=== PATIENT | male | born 1960 | race Caucasian/White ===

== ENCOUNTER → 2016-06-04 | Outpatient (CLI) | payer OTHER ==
[~2016-06-04] MED LIST: CYCL1TAB29 PO; GABA100C4 PO; NAPR250T PO; [UNRECOGNIZED DRUG - CODE] PO
[2016-06-04 08:44] LABS: BASOPHIL # 0.1 TH/MM3 (0-0.2); BASOPHIL % 0.7 % (0.0-2.0); EOSINOPHIL # 0.1 TH/MM3 (0-0.4); EOSINOPHIL % 1.6 % (0.0-4.0); HEMATOCRIT 43.7 % (39.0-51.0); HEMO FLAGS DIFF FINAL; LYMPH % 17.1 % (9.0-44.0); LYMPHOCYTE # 1.4 TH/MM3 (1.0-4.8); MEAN CELL VOLUME 90.7 FL (80.0-100.0); MEAN CORPUSCULAR HEMOGLOBIN 31.3 PG (27.0-34.0); MEAN CORPUSCULAR HGB CONC 34.5 % (32.0-36.0); MONO % 7.3 % (0.0-8.0); NEUT % 73.3 % (16.0-70.0); PLATELET COUNT 344 TH/MM3 (150-450); RED BLOOD COUNT 4.82 MIL/MM3 (4.50-5.90); RED CELL DISTRIBUTION WIDTH 14.1 % (11.6-17.2); WHITE BLOOD COUNT 8.1 TH/MM3 (4.0-11.0)
[2016-06-04 09:26] LABS: ALKALINE PHOSPHATASE 75 U/L (45-117); ALT (GPT) 42 U/L (12-78); ANION GAP 7 MEQ/L (5-15); AST (GOT) 27 U/L (15-37); BICARBONATE 27.2 MEQ/L (21.0-32.0); BLOOD UREA NITROGEN 17 MG/DL (7-18); CHLORIDE 108 MEQ/L (98-107); GLOMERULAR FILTRATION RATE 101 ML/MIN (>89); GLUCOSE,FASTING 94 MG/DL (74-99); HDL CHOLESTEROL 65.6 MG/DL (40.0-60.0); LDL CHOLESTEROL 116 MG/DL (0-99); POTASSIUM 4.1 MEQ/L (3.5-5.1); SODIUM (NA) 142 MEQ/L (136-145); TOTAL BILIRUBIN ADULT 0.4 MG/DL (0.2-1.0)
--- NOTE | 2016-06-04 09:34 | RADRPT ---
EXAM DATE/TIME: 06/04/2016 09:00 [facility] COMPARISON: No previous studies available for comparison. INDICATIONS : Cough. MEDICAL HISTORY : smoker SURGICAL HISTORY : None. ENCOUNTER: Initial ACUITY: 1 day PAIN SCORE: 0/10 LOCATION: Bilateral chest FINDINGS: The heart is normal in size. The mediastinal contours are within normal limits. The exam demonstrates a questionable 1 cm nodule in the left lung apex. CT imaging of the thorax is w arranted for further assessment. The remainder of the pulmonary parenchyma is clear. The visualized bony structures demonstrate mild degenerative changes but are otherwise intact. CONCLUSION: 1. Questionable 1 cm left apical nodule. CT of the chest is warranted. Darius Gordon MD on June 04, 2016 at 9:30 Board Certified Radiologist. This report was verified electronically.
== END ==
LOC: CLAB 08:16
PROVIDERS: ATTEND Nurse Practitioner Family
DX: R63.4 Abnormal weight loss (principal); E78.5 Hyperlipidemia, unspecified; R35.0 Frequency of micturition; I10 Essential (primary) hypertension; R53.83 Other fatigue
CPT/HCPCS: 36415; 71020; 80053; 80061; 84153; 84443; 85025

== ENCOUNTER → 2016-06-05 | Outpatient (CLI) | payer OTHER ==
--- NOTE | 2016-06-05 13:27 | RADRPT ---
EXAM DATE/TIME: 06/05/2016 12:26 [facility] COMPARISON: No previous studies available for comparison. INDICATIONS : Evaluate for lung nodule. RADIATION DOSE: 3.74 CTDIvol (mGy) MEDICAL HISTORY : Hypercholesterolemia. SURGICAL HISTORY : Orthopedic ENCOUNTER: Initial ACUITY: 1 day PAIN SCALE: 0/10 LOCATION: Right chest TECHNIQUE: Volumetric scanning of the chest was performed. Using automated exposure control and adjustment of t he mA and/or kV according to patient size, radiation dose was kept as low as reasonably achievable to obtain optimal diagnostic quality images. FINDINGS: LUNGS: There is no consolidation or pneumothorax. No concerning pulmonary nodule is visualized. PLEURAE: There is no pleural thickening or pleural effusion. MEDIASTINUM: The examination demonstrates aneurysmal dilation of aortic root in ascending aorta. Maximum dimension of the ascending aorta is 4.0 CM. The arch and descending thoracic aorta are normal in caliber. Ther e is no significant hilar or mediastinal adenopathy. AXILLAE: Within normal limits. No lymphadenopathy. MUSCULOSKELETAL: Within normal limits for patient age. MISCELLANEOUS: The visualized upper abdominal organs demonstrate no acute abnormality. CONCLUSION: 1. 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 2. No pulmonary nodule identified. The lungs are clear. Darius Grodon MD on June 05, 2016 at 13:23 Board Certified Radiologist. This report was verified electronically.
== END ==
LOC: HRAD 12:09
PROVIDERS: ATTEND Family Medicine
DX: R91.1 Solitary pulmonary nodule (principal)
CPT/HCPCS: 71250

== ENCOUNTER → 2016-06-23 | Outpatient (CLI) | payer OTHER ==
[~2016-06-23] MED LIST changes: -[UNRECOGNIZED DRUG - CODE] PO
[2016-06-23 09:37] LABS: BICARBONATE 29.2 MEQ/L (21.0-32.0); POTASSIUM 4.6 MEQ/L (3.5-5.1)
== END ==
LOC: CLAB 08:47
PROVIDERS: ATTEND Nurse Practitioner Family
DX: I71.9 Aortic aneurysm of unspecified site, without rupture (principal)
CPT/HCPCS: 36415; 80069

== ENCOUNTER → 2016-06-25 | Outpatient (CLI) | payer OTHER ==
[~2016-06-25] MED LIST changes: +IOHEXOL 350 MG/ML 10 ML VIAL (for RAD DIAG) IV ONE
--- NOTE | 2016-06-25 12:13 | RADRPT ---
EXAM DATE/TIME: 06/25/2016 11:19 [facility] COMPARISON: No previous studies available for comparison. INDICATIONS : Evaluate for aneurysm in aortic root. IV CONTRAST: 74 cc Omnipaque 350 (iohexol) IV RADIATION DOSE: 6.75 CTDIvol (mGy) MEDICAL HISTORY : Hypercholesterolemia. SURGICAL HISTORY : None. ENCOUNTER: Initial ACUITY: 1 day PAIN SCALE: 3/10 LOCATION: Chest TECHNIQUE: Volumetric scanning of the chest was performed using a pulmonary embolism protocol MIP images were re constructed. Using automated exposure control and adjustment of the mA and/or kV according to patien t size, radiation dose was kept as low as reasonably achievable to obtain optimal diagnostic quality images. FINDINGS: There is mild dilatation of the ascending aorta. Ascending aorta is dilated to 4 cm. Descending aor ta is normal in size. There are no significant coronary calcifications. There is no evidence for dissection. There is no axillary adenopathy. There is no radiographically significant mediastinal adenopathy. There is no pericardial effusion. There are no suspicious lung lesions identified. CONCLUSION: 1. Mild dilatation of the ascending aorta. 2. There is no radiographically significant mediastinal adenopathy. 3. There is no aortic valve calcification. There is no coronary calcifications. There is mild card iomegaly. Robel Gordon MD FACR on June 25, 2016 at 12:03 Board Certified Radiologist. This report was verified electronically.
--- NOTE | 2016-06-26 10:37 | EC ---
Study Study Date:06/25/2016 STUDY CONCLUSIONS SUMMARY - Left ventricle: The cavity size was normal. Wall thickness was normal. Systolic function was normal. The estimated ejection fraction was in the range of 55% to 60%. Wall motion was normal; there were no regional wall motion abnormalities. - Aortic valve: Valve area: 2.88cm^2 (Vmax). - Mitral valve: Mild regurgitation. If LV function is below 40, please consider prescribing an ACEI or ARB or document rationale for non-use. PROCEDURE DATA STUDY STATUS: Elective. Procedure: Transthoracic echocardiography. Image quality was good. Scanning was performed from the parasternal, apical, and subcostal acoustic windows. Study completion: The patient tolerated the procedure well. Transthoracic echocardiography. M-mode, complete 2D, complete spectral Doppler, and color Doppler. Height: Height: 72in. Weight: Weight: 159.7lb. Body mass index: BMI: 21.7kg/m^2. Body surface area: BSA: 1.94m^2. Patient status: Inpatient. CARDIAC ANATOMY LEFT VENTRICLE: The cavity size was normal. Wall thickness was normal. Systolic function was normal. The estimated ejection fraction was in the range of 55% to 60%. Wall motion was normal; there were no regional wall motion abnormalities. AORTIC VALVE: Trileaflet; normal thickness leaflets. Doppler: Transvalvular velocity was within the normal range. There was no stenosis. No regurgitation. Valve area: 2.88cm^2 (Vmax). Indexed valve area: 1.48cm^2/m^2 (Vmax). AORTA: The aorta was dilated. MITRAL VALVE: Structurally normal valve. Doppler: Transvalvular velocity was within the normal range. There was no evidence for stenosis. Mild regurgitation. Valve area by pressure half-time: 2.62cm^2. Indexed valve area by pressure half-time: 1.35cm^2/m^2. LEFT ATRIUM: The atrium was normal in size. RIGHT VENTRICLE: The cavity size was normal. Wall thickness was normal. PULMONIC VALVE: Doppler: Transvalvular velocity was within the normal range. There was no evidence for stenosis. No regurgitation. TRICUSPID VALVE: Structurally normal valve. Doppler: Transvalvular velocity was within the normal range. No regurgitation. PULMONARY ARTERY: The main pulmonary artery was normal-sized. Systolic pressure was within the normal range. RIGHT ATRIUM: The atrium was normal in size. PERICARDIUM: There was no pericardial effusion. SYSTEMIC VEINS: Inferior vena cava: The vessel was normal in size. Patient weight: 159.7lb _Ejection fraction:_ 65-75% _Fractional shortening:_ 32% up to 5Kg 5-11.5Kg 11.6-22.9Kg 23-45Kg 45-57Kg Aortic Root 7-13 <17 13-22 17-27 17-27 LA diam 6-13 <23 24-38 33-47 37-40 RVID 10-17 7-15 7-15 7-18 8-17 LVIDd 12-22 <32 24-38 33-47 37-40 LVPW 2-4 3-6 5-7 6-8 7-8 IVS 2-4 3-6 5-7 6-8 7-8 BASIC MEASUREMENTS ADULT NORMAL Left ventricle LV internal dimension, ED, chordal 51.6 mm 43-52 level, PLAX LV internal dimension, ES, chordal 34.1 mm 23-38 level, PLAX Fractional shortening, chordal level, 34 % >29 PLAX LV posterior wall thickness, ED 11.5 mm IVS/LVPW ratio, ED 1.01 <1.3 Ventricular septum Septal thickness, ED 11.6 mm Aortic valve Leaflet separation 25 mm 15-26 Aorta Root diameter, ED 38 mm Left atrium Anterior-posterior dimension 39 mm Anterior-posterior dimension index 2.01 cm/m^2 <2.2 Right ventricle RV internal dimension, ED, PLAX 35.5 mm 19-38 BASIC MEASUREMENTS ADULT NORMAL Aortic valve Leaflet separation 25 mm 15-26 Aorta Root diameter, ED *38 mm 20-37 Left atrium Anterior-posterior dimension, ES 40 mm 19-40 Anterior-posterior dimension index, ES 2.06 cm/m^2 <2.2 LA/aortic root ratio 1.05 DOPPLER MEASUREMENTS ADULT NORMAL Aortic valve Peak velocity, S 133 cm/s Valve area, Vmax 2.88 cm^2 Valve area index, Vmax 1.48 cm^2/m^2 Mitral valve Peak E-wave velocity 67.6 cm/s Peak A-wave velocity 70.1 cm/s Pressure half-time 84 ms Peak E/A ratio 1 Valve area, pressure half-time 2.62 cm^2 Valve area index, pressure half-time 1.35 cm^2/m^2 Pulmonic valve Peak velocity, S 78.2 cm/s LEGEND: Mean values are shown as u=mean value. Asterisk (*) stephens values outside specified normal range. Amended Cruz Arias [id number]
== END ==
LOC: HECH 08:42
PROVIDERS: ATTEND Family Medicine
DX: I71.9 Aortic aneurysm of unspecified site, without rupture (principal)
CPT/HCPCS: 71275; 93306; Q9967